=== PATIENT | female | born 1985 | race Caucasian/White ===

== ENCOUNTER 2017-01-17 17:14 | Inpatient (IN) | payer MEDICARE ==
[~2017-01-17] VITALS: Ht 167.6 cm; Wt 61.7 kg
[2017-01-17 18:06] LABS: HEMOGLOBIN 11.4 gm/dl (12.3-15.3); RED BLOOD COUNT 4.06 M/UL (4.00-5.10); WHITE BLOOD COUNT 11.2 K/UL (4.5-11.0)
[2017-01-18 04:02] LABS: HEMOGLOBIN 11.7 gm/dl (12.3-15.3)
[2017-01-19] MEDS ORDERED: COLACE100 MG PO (10:23)
[2017-01-19] MEDS ORDERED: IBUPROFEN600 MG PO (10:23)
== END 2017-01-19 11:30 | disposition home or self-care (01) | DRG 765 ==
LOC: GENOP 17:14 → OB 17:43
PROVIDERS: Obstetrics & Gynecology; ADMIT Obstetrics & Gynecology
PROC: 10D00Z1 Extraction of Products of Conception, Low, Open Approach (ICD-10-PCS; principal; 2017-01-17 18:14)
DX: O45.8X3 Other premature separation of placenta, third trimester (principal); O99.324 Drug use complicating childbirth; O98.42 Viral hepatitis complicating childbirth; O36.0130 Maternal care for anti-D [Rh] antibodies, third trimester, not applicable or unspecified; F11.10 Opioid abuse, uncomplicated; B18.2 Chronic viral hepatitis C; O99.334 Smoking (tobacco) complicating childbirth; F17.210 Nicotine dependence, cigarettes, uncomplicated; Z3A.37 37 weeks gestation of pregnancy; Z37.0 Single live birth; M54.30 Sciatica, unspecified side; Z80.1 Family history of malignant neoplasm of trachea, bronchus and lung; Z82.49 Family history of ischemic heart disease and other diseases of the circulatory system; Z83.3 Family history of diabetes mellitus
CPT/HCPCS: 36415; 80307; 81001; 82800; 85014; 85018; 85025; 85461; 86850; 86900; 86901; C9113; J0690; J1885; J2274; J2550; J2590; J2765; J7050; J7120

== ENCOUNTER → 2021-01-28 | Day surgery (SDC) | payer OTHER ==
[~2021-01-28] MED LIST: BUSPAR 10MG10 MG PO; CLEOCIN HCL150 MG PO; COLACE100 MG PO; DOK100 MG PO; HYDROXYZINE HCL50 MG PO; IBUPROFEN600 MG PO; IBUPROFEN800 MG PO; LEXAPRO20 MG PO; NEXPLANON68 MG SQ; OMEPRAZOLE20 M1 PO; PHENERGAN 25 MG25 M1 PO; PREVACID15 M1 PO; SUBOXONE 8 MG-1 EACH SL; SUBUTEX 8 MG TAB8 MG SL; ZOFRAN4 MG PO
[2021-01-28 11:58] LABS: HEMOGLOBIN 15.1 gm/dl (12.3-15.3); RED BLOOD COUNT 5.29 M/UL (4.00-5.10); WHITE BLOOD COUNT 7.9 K/UL (4.5-11.0)
== END | disposition home or self-care (01) ==
LOC: OR 09:30
PROVIDERS: Obstetrics & Gynecology
DX: N92.0 Excessive and frequent menstruation with regular cycle (principal); N94.6 Dysmenorrhea, unspecified; F17.200 Nicotine dependence, unspecified, uncomplicated; R63.5 Abnormal weight gain; Z30.8 Encounter for other contraceptive management; K21.9 Gastro-esophageal reflux disease without esophagitis
CPT/HCPCS: 36415; 81001; 84702; 85025; J0690; J1100; J1885; J2001; J2250; J2405; J2704; J7030; J7040; J7120